=== PATIENT | female | born 1990 | race Caucasian/White ===

== ENCOUNTER 2018-03-04 16:27 | Emergency (ER) | payer BC ==
[2018-03-04] MEDS ORDERED: SODIUM CHLORIDE 0.9% 1000ML 1,000 ML IVS ONE (16:44)
[2018-03-04 16:57] VITALS: TEMP 98.4
[2018-03-04 17:44] VITALS: O2SAT 96
[2018-03-04] MEDS ORDERED: levoFLOXacin 500 MG TAB PO ONE (18:00)
[2018-03-04] MEDS ORDERED: FLUCONAZOLE 100 MG TAB PO ONE (18:00)
--- NOTE | 2018-03-04 18:08 | ED.PDOC ---
History of Present Illness - General Chief Complaint: Syncope/Near Syncope Stated Complaint: Syncope after injection Time Seen by Provider: 03/04/18 16:29 Source: patient Exam Limitations: no limitations - History of Present Illness Initial Comments: the patient a 28-year-old female presenting to the emergency room secondary to what appears to be a vasovagal syncopal episode after receiving a Toradol injection. The patient has apparently been having recurring headaches over the last month. She has not been taking care of her blood sugars and her blood sugars have been high. The patient is alert and pleasant and cooperative.she has not been having any focal neurological deficits. No confusion. Headache seems to start on the side of the scalp and work down towards the back of the neck when it comes on. Headaches are almost daily. No real vomiting but occasional nausea. She has tried migraine medications without much relief. Timing/Duration: unsure Severity: moderate Improving Factors: nothing Worsening Factors: nothing Associated Symptoms: headaches Allergies/Adverse Reactions: Allergies Penicillins Allergy (Verified 03/04/18 16:40) Home Medications: Ambulatory Orders Aripiprazole 10 mg PO DAILY 03/04/18 Escitalopram [Lexapro] 10 mg PO DAILY 03/04/18 Glimepiride 2 mg PO DAILY 03/04/18 Lisinopril [Prinivil] 10 mg PO DAILY 03/04/18 Norelgestromin-Ethinyl Estradi [Xulane 150-35 Mcg/24Hr] 1 each PO DAILY 03/04/18 levoFLOXacin [Levaquin] 500 mg PO DAILY #7 tab 03/04/18 metFORMIN XR [Glucophage Xr] 1,000 mg PO BID 03/04/18 Review of Systems - Review of Systems Constitutional: States: malaise EENTM: States: no symptoms reported Respiratory: States: no symptoms reported Cardiology: States: no symptoms reported Gastrointestinal/Abdominal: States: no symptoms reported Genitourinary: States: no symptoms reported Musculoskeletal: States: no symptoms reported Skin: States: no symptoms reported Neurological: States: other - yncopeand headaches Endocrine: States: no symptoms reported All other Systems: No Change from Baseline Past Medical History (General) - Patient Medical History Hx Stroke: No Hx Congestive Heart Failure: No Hx Diabetes: Yes Surgical History: no surgical history - Vaccination History Hx Tetanus, Diphtheria Vaccination: Yes Hx Influenza Vaccination: Yes - 2018 Hx Pneumococcal Vaccination: No - Social History Hx Tobacco Use: No - Vapes Hx Alcohol Use: No - Female History Patient is a Female of Child Bearing Age (10 -59 yrs old): Yes Patient : No Family Medical History - Family History Mother Family History: No Known Living Status: Still Living Physical Exam - Physical Exam General Appearance: Alert, Comfortable, No apparent distress Eye Exam: bilateral normal Ears, Nose, Throat: hearing grossly normal, normal ENT inspection, normal pharynx Neck: full range of motion, supple Respiratory: lungs clear, normal breath sounds, no respiratory distress, no accessory muscle use Cardiovascular/Chest: normal peripheral pulses, regular rate, rhythm, no edema Peripheral Pulses: radial,right: 2+, radial,left: 2+, dorsalis pedis,right: 2+, dorsalis pedis,left: 2+ Gastrointestinal/Abdominal: non tender - obese, soft Rectal Exam: deferred Back Exam: no CVA tenderness, no vertebral tenderness Extremity: normal range of motion, non-tender, normal inspection, no pedal edema , normal capillary refill 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 This is likely made worse by significant dehydration. Dehydration is likely due to sustained hyperglycemia from poorly controlled diabetes. The patient has a plan with her primary care doctor to get her blood sugars down. She did receive a liter of IV fluids here. She needs to increase her fluid intake over the next 3-5 days to 1 gallon to 1 gallon and a half per day water. The patient does have what appears to be a small urinary tract infection and yeast infection. She is going to be placed on Levaquin 500 milligrams daily for 7 days and she was given a dose of Diflucan here tonight. It is very possible that the headaches are due to dehydration related to the uncontrolled diabetes. If the headaches are failing to improve over the next couple of weeks with improved blood sugar control and hydration, then neurological evaluation may be warranted, possibly including lumbar puncture for opening pressure and head CT. Follow back up with primary care doctor next week. ER warnings were given. Telemetry monitoring showed no significant arrhy thmia. - Results/Orders Results/Orders: Laboratory Tests 03/04/18 03/04/18 03/04/18 17:00 17:00 17:00 WBC 9.1 RBC 5.30 Hgb 15.8 Hct 46.4 MCV 87.5 MCH 29.9 MCHC 34.2 RDW 12.6 Plt Count 328 MPV 7.9 Absolute Neuts (auto) 5.30 Absolute Lymphs (auto) 2.90 Absolute Monos (auto) 0.70 Absolute Eos (auto) 0.10 Absolute Basos (auto) 0.10 Neutrophils % 58.3 Lymphocytes % 31.9 Monocytes % 7.9 Eosinophils % 0.7 L Basophils % 1.2 Sodium 135 Potassium 3.6 Chloride 100 L Carbon Dioxide 22 Anion Gap 16.6 BUN 13 Creatinine 0.43 L BUN/Creatinine Ratio 30.2 H POC Glucose 229 H Random Glucose 235 H Serum Osmolality 277.8 Calcium 9.5 Magnesium 1.7 L Total Bilirubin 1.6 H AST 29 ALT 37 Alkaline Phosphatase 80 Serum Total Protein 8.1 Albumin 4.2 Globulin 3.9 H Albumin/Globulin Ratio 1.1 TSH 1.28 Urine Color Urine Appearance Urine pH Ur Specific [place] Urine Protein Urine Glucose (UA) Urine Ketones Urine Blood Urine Nitrite Urine Bilirubin Urine Urobilinogen Ur Leukocyte Esterase Urine RBC Urine WBC Ur Epithelial Cells Amorphous Sediment Urine Bacteria Urine Yeast Urine HCG, Qual 03/04/18 03/04/18 17:25 17:25 WBC RBC Hgb Hct MCV MCH MCHC RDW Plt Count MPV Absolute Neuts (auto) Absolute Lymphs (auto) Absolute Monos (auto) Absolute Eos (auto) Absolute Basos (auto) Neutrophils % Lymphocytes % Monocytes % Eosinophils % Basophils % Sodium Potassium Chloride Carbon Dioxide Anion Gap BUN Creatinine BUN/Creatinine Ratio POC Glucose Random Glucose Serum Osmolality Calcium Magnesium Total Bilirubin AST ALT Alkaline Phosphatase Serum Total Protein Albumin Globulin Albumin/Globulin Ratio TSH Urine Color Yellow Urine Appearance Cloudy Urine pH 5.5 Ur Specific [place] >= 1.030 Urine Protein >=300 H Urine Glucose (UA) 500 H Urine Ketones Trace Urine Blood Trace-lysed H Urine Nitrite Negative Urine Bilirubin Small H Urine Urobilinogen 0.2 Ur Leukocyte Esterase Negative Urine RBC 0-1 Urine WBC 3-5 H Ur Epithelial Cells 10-20 Amorphous Sediment 2+ Urine Bacteria 4+ H Urine Yeast 2+ budding H Urine HCG, Qual Negative Departure - Departure Clinical Impression: Vasovagal syncope, Dehydration, Yeast infection Urinary tract infection Qualifiers: Urinary tract infection type: acute cystitis Hematuria presence: without hematuria Qualified Code(s): N30.00 - Acute cystitis without hematuria Chronic headaches Qualifiers: Headache type: unspecified Intractability: not intractable Qualified Code(s): R51 - Headache Uncontrolled diabetes mellitus Qualifiers: Diabetes mellitus type: type 2 Disposition: Discharge to Home or Self Care Condition: Fair Departure Forms: ED Discharge - Pt. Copy, Patient Portal Self Enrollment Instructions: Syncope (Fainting) (DC), Type 2 Diabetes, Dehydration, Adult (DC), Yeast Infection (DC), Urinary Tract Infection, Adult (DC) Diet: diabetic diet Activity: increase activity as tolerated Referrals: Harry Plata III, MD [Primary Care Provider] - 1-2 Weeks Prescriptions: levoFLOXacin [Levaquin] 500 mg PO DAILY #7 tab Home Medications: Ambulatory Orders Aripiprazole 10 mg PO DAILY 03/04/18 Escitalopram [Lexapro] 10 mg PO DAILY 03/04/18 Glimepiride 2 mg PO DAILY 03/04/18 Lisinopril [Prinivil] 10 mg PO DAILY 03/04/18 Norelgestromin-Ethinyl Estradi [Xulane 150-35 Mcg/24Hr] 1 each PO DAILY 03/04/18 levoFLOXacin [Levaquin] 500 mg PO DAILY #7 tab 03/04/18 metFORMIN XR [Glucophage Xr] 1,000 mg PO BID 03/04/18 Additional Instructions: the patient is a 28-year-old female presenting after what appears to be a vasovagal syncopal episode. This is likely made worse by significant dehydration. Dehydration is likely due to sustained hyperglycemia from poorly controlled diabetes. The patient has a plan with her primary care doctor to get her blood sugars down. She did receive a liter of IV fluids here. She needs to increase her fluid intake over the next 3-5 days to 1 gallon to 1 gallon and a half per day water. The patient does have what appears to be a small urinary tract infection and yeast infection. She is going to be placed on Levaquin 500 milligrams daily for 7 days and she was given a dose of Diflucan here tonight. It is very possible that the headaches are due to dehydration related to the uncontrolled diabetes. If the headaches are failing to improve over the next couple of weeks with improved blood sugar control and hydration, then neurological evaluation may be warranted, possibly including lumbar puncture for opening pressure and head CT. Follow back up with primary care doctor next week. ER warnings were given. Telemetry monitoring showed no significant arrhythmia.
[2018-03-04 18:31] VITALS: BP 127/82
== END 2018-03-04 18:27 | disposition home or self-care (01) ==
LOC: ER 16:27
DX: R55 Syncope and collapse (principal); E86.0 Dehydration; N30.00 Acute cystitis without hematuria; B37.3 Candidiasis of vulva and vagina; E11.65 Type 2 diabetes mellitus with hyperglycemia; R51 Headache; R11.0 Nausea; F17.290 Nicotine dependence, other tobacco product, uncomplicated; Z79.84 Long term (current) use of oral hypoglycemic drugs; Z79.899 Other long term (current) drug therapy
CPT/HCPCS: 36415; 80053; 81001; 81025; 82948; 83735; 84443; 85025; 85651; J7030

== ENCOUNTER → 2019-02-15 | Outpatient (CLI) | payer BC | LOC: LAB.O 09:07 | PROVIDERS: ATTEND Nurse Practitioner Family | DX: N91.2 Amenorrhea, unspecified (principal) ==

== ENCOUNTER 2019-03-26 20:45 | Emergency (ER) | payer BC ==
--- NOTE | 2019-03-26 20:53 | ED.PDOC ---
History of Present Illness - General Time Seen by Provider: 03/26/19 20:51 Source: patient - History of Present Illness Initial Comments: 29 yo female at 11 weeks gestation (LMP 12/15/18) with PMH of DM2 who presents with cc of accidental Humalog overdose. Reports at 8:30 pm (30 mins [employer]MP [employer]ORMAN) she injected Humalog 42 units SQ instead of Lantus 42 units, which is what she meant to take. Reports her insulin regimen is Lantus 42 units qHS with SS Humalog pr ior to meals - usually just 2-3 units at a time. Reports last D-stick check at home was 108 prior to lunch. She reports eating 5-6 crackers through the afternoon but has not yet had dinner or any food since the accidental injection. Denies any acute symptoms - no dizziness/lightheadedness, palpitations, chest pain, dyspnea, abd pain, n/v/d, diaphoresis, etc... Reports her is going well. Dr. Perfecto Corrigan is her PCP and managing her . She also takes Metformin 500 mg PO BID. Allergies/Adverse Reactions: Allergies Penicillins Allergy (Verified 03/26/19 21:06) Home Medications: Ambulatory Orders Aripiprazole 10 mg PO DAILY 03/04/18 Escitalopram [Lexapro] 10 mg PO DAILY 03/04/18 Glimepiride 2 mg PO DAILY 03/04/18 Lisinopril [Prinivil] 10 mg PO DAILY 03/04/18 Norelgestromin-Ethinyl Estradi [Xulane 150-35 Mcg/24Hr] 1 each PO DAILY 03/04/18 levoFLOXacin [Levaquin] 500 mg PO DAILY #7 tab 03/04/18 metFORMIN XR [Glucophage Xr] 1,000 mg PO BID 03/04/18 Review of Systems - Review of Systems Review of Systems: 03/26/19 21:08 as per HPI All other Systems: Reviewed and Negative Past Medical History (General) - Patient Medical History Hx Stroke: No Hx Congestive Heart Failure: No Hx Diabetes: Yes - Vaccination History Hx Tetanus, Diphtheria Vaccination: Yes Hx Influenza Vaccination: Yes - 2018 Hx Pneumococcal Vaccination: No - Social History Hx Tobacco Use: No - Vapes Hx Alcohol Use: No - Female History Patient : No Family Medical History - Family History Mother Family History: No Known Living Status: Still Living Physical Exam - Physical Exam General Appearance: Alert, Comfortable, No apparent distress Eye Exam: bilateral normal Ears, Nose, Throat: hearing grossly normal, normal ENT inspection, normal pharynx Neck: non-tender, full range of motion, supple, normal inspection Respiratory: lungs clear, normal breath sounds, no respiratory distress Cardiovascular/Chest: normal peripheral pulses, regular rate, rhythm, no edema, no gallop, no murmur Peripheral Pulses: radial,right: 2+, radial,left: 2+ Gastrointestinal/Abdominal: non tender, soft, no organomegaly, other - slightly gravid abdomen appearing c/w 1st trimester gestation Back Exam: normal inspection, no CVA tenderness Extremity: normal range of motion, non-tender, normal inspection, no pedal edema, no calf tenderness 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 T bili mildly elevated but lower than last check. Unsure of etiology, but as no acute abd pain or sx's will advise outpatient f/u of this -pt refused CXR -Her glucose checks have remained >150 now for >1 hour and still no acute sx's. Discussed findings. Advised strict return warnings this evenings if concerning sx's occur. F/u closely with PCP. Hold Lantus dosage this evening and resume tomorrow evening. Carlos Roque MD Billing #[id number] 03/26/19 20:55 IV Care:Saline Lock per Protoc QSHIFT Telemetry .ONCE Sodium Chloride 0.9% (Flush) [Saline Flush Syringe] 10 ml IV PRN PRN Pulse Oximetry Assessment DAILY Chest,1 View [RAD] Stat 03/26/19 21:00 EKG STAT 03/26/19 22:35 GLUCOSE, FINGER STICK Stat 03/27/19 09:00 Pulse Ox Daily Laboratory Results - last 24 hr 03/26/19 03/26/19 03/26/19 21:19 21:19 21:19 WBC 12.0 H RBC 4.60 Hgb 13.9 Hct 40.5 MCV 88.0 MCH 30.1 MCHC 34.3 RDW 12.4 Plt Count 307 MPV 7.5 Absolute Neuts (auto) 7.80 H Absolute Lymphs (auto) 3.50 H Absolute Monos (auto) 0.60 Absolute Eos (auto) 0.10 Absolute Basos (auto) 0.10 Neutrophils % 64.5 Lymphocytes % 28.9 Monocytes % 5.3 Eosinophils % 0.7 L Basophils % 0.6 Sodium 137 Potassium 3.7 Chloride 104 Carbon Dioxide 22 Anion Gap 14.7 BUN 14 Creatinine < 0.40 L BUN/Creatinine Ratio 35.0 H POC Glucose 74 Random Glucose 76 Serum Osmolality 273.0 L Calcium 9.6 Total Bilirubin 1.2 H AST 30 ALT 34 Alkaline Phosphatase 50 Serum Total Protein 7.3 Albumin 4.0 Globulin 3.3 Albumin/Globulin Ratio 1.2 03/26/19 03/26/19 03/26/19 21:35 21:50 22:05 WBC RBC Hgb Hct MCV MCH MCHC RDW Plt Count MPV Absolute Neuts (auto) Absolute Lymphs (auto) Absolute Monos (auto) Absolute Eos (auto) Absolute Basos (auto) Neutrophils % Lymphocytes % Monocytes % Eosinophils % Basophils % Sodium Potassium Chloride Carbon Dioxide Anion Gap BUN Creatinine BUN/Creatinine Ratio POC Glucose 90 198 H D 189 H Random Glucose Serum Osmolality Calcium Total Bilirubin AST ALT Alkaline Phosphatase Serum Total Protein Albumin Globulin Albumin/Globulin Ratio - EKG/XRAY/CT EKG: Sinus - NSR, HR 90, no ST elevations or q waves, nonspecific T wave abn lead III, axis & intervals normal, no prior EKG for comparison Departure - Departure Clinical Impression: Insulin adverse reaction Qualifiers: Encounter type: initial encounter Qualified Code(s): T38.3X5A - Adverse effect of insulin and oral hypoglycemic [antidiabetic] drugs, initial encounter Time of Disposition: 23:02 Disposition: Discharge to Home or Self Care Condition: Good Instructions: Low Blood Sugar, Adult (DC) Diet: resume usual diet Referrals: PERFECTO CORRIGAN [Primary Care Provider] - 1-2 Weeks Home Medications: Ambulatory Orders Aripiprazole 10 mg PO DAILY 03/04/18 Escitalopram [Lexapro] 10 mg PO DAILY 03/04/18 Glimepiride 2 mg PO DAILY 03/04/18 Lisinopril [Prinivil] 10 mg PO DAILY 03/04/18 Norelgestromin-Ethinyl Estradi [Xulane 150-35 Mcg/24Hr] 1 each PO DAILY 03/04/18 levoFLOXacin [Levaquin] 500 mg PO DAILY #7 tab 03/04/18 metFORMIN XR [Glucophage Xr] 1,000 mg PO BID 03/04/18 Additional Instructions: Return if you develop any new or concerning symptoms such as feeling lightheaded, dizzy, palpitations, fainting, chest pain, shortness of breath, or if your blood glucose drops below 60 and you are not able to correct with eating food. If you do develop sx's above or have a low blood glucose level at home, eat simple sugars such as juices, candy, soda, etc... and monitor your glucose level closely. Hold your Lantus dosage this evening. You may resume tomorrow evening as long as your blood glucose levels have normalized. Follow up as scheduled or sooner as needed with your primary care doctor.
[2019-03-26] MEDS: SODIUM CHLORIDE 0.9% (FLUSH) 10 ML SYG IV PRN (21:48)
[2019-03-27 00:57] VITALS: BP 124/79; TEMP 98.2; O2SAT 99
== END 2019-03-26 23:25 | disposition home or self-care (01) ==
LOC: ER 20:45
DX: O9A.211 Injury, poisoning and certain other consequences of external causes complicating pregnancy, first trimester (principal); T38.3X1A Poisoning by insulin and oral hypoglycemic [antidiabetic] drugs, accidental (unintentional), initial encounter; O24.111 Pre-existing type 2 diabetes mellitus, in pregnancy, first trimester; E11.9 Type 2 diabetes mellitus without complications; Z3A.11 11 weeks gestation of pregnancy; Z79.899 Other long term (current) drug therapy; Z88.0 Allergy status to penicillin; Z87.891 Personal history of nicotine dependence

== ENCOUNTER → 2019-07-14 | Outpatient (CLI) | payer BC | LOC: LAB.O 07-12 14:23 | PROVIDERS: ATTEND Emergency Medicine | DX: O13.9 Gestational [pregnancy-induced] hypertension without significant proteinuria, unspecified trimester (principal); Z3A.00 Weeks of gestation of pregnancy not specified ==

== ENCOUNTER → 2019-09-27 | Outpatient (CLI) | payer BC | LOC: LAB.O 13:46 | PROVIDERS: ATTEND Emergency Medicine | DX: I10 Essential (primary) hypertension (principal) ==

== ENCOUNTER → 2019-11-03 | Outpatient (CLI) | payer BC ==
--- NOTE | 2019-11-04 11:21 | US ---
EXAM DESCRIPTION: Soft Tissue,Abdomen: ULTRASOUND. CLINICAL HISTORY: 29 years Female INCISION SITE. section 5 weeks ago. Draining wound in the scar. Palpable mass superior to the wound. COMPARISON: None Available. TECHNIQUE: Transcutaneous scanning: Chandler-scale and Doppler modes. FINDINGS: Scanning the section surgical site. Irregular hypoechoic tissue partially in the muscle layer and partially in the subcutaneous adipose tissue layer. This irregular tissue which may represent fluid measures 2.9 x 2.6 x 5.1 cm. Nonvascular. No surrounding soft tissue mass. No calcifications. IMPRESSION: Small hematoma or abscess posterior and superior to section incision site with drainage. Electronically signed by: Rian Silva MD 11/04/2019 11:19 AM CDT
== END ==
LOC: US 08:04
PROVIDERS: ATTEND Physician Assistant
DX: T81.40XA Infection following a procedure, unspecified, initial encounter (principal); M79.9 Soft tissue disorder, unspecified